=== PATIENT | female | born 1965 | race Caucasian/White ===

== ENCOUNTER 2024-02-24 09:23 | Outpatient (CLI) | payer BC, SELFPAY ==
--- NOTE | 2024-02-24 09:42 | ECG_ITS ---
Test Date: 2024-02-24 09:53:33 Measurements Intervals Datil Rate: 77 P: 57 MT: 143 QRS: 57 QRSD: 98 T: 45 QT: 373 QTc: 424 Interpretive Statements SINUS RHYTHM INCOMPLETE RIGHT BUNDLE BRANCH BLOCK [90+ ms QRS DURATION, TERMINAL R IN V1/V2, 40+ ms S IN I/aVL/V4/V5/V6] No previous ECG available for comparison Electronically Signed On 02-24-2024 15:36:30 CDT by Hector Huerta M.D.
== END 2024-02-24 09:24 | disposition home or self-care (01) ==
PROVIDERS: Visit Provider Obstetrics & Gynecology
DX: N83.209 Unspecified ovarian cyst, unspecified side (principal); I10 Essential (primary) hypertension; I45.10 Unspecified right bundle-branch block
CPT/HCPCS: 36415; 86850; 86900; 86901; 93005

== ENCOUNTER 2024-02-29 00:22 | Day surgery (SDC) | payer BC, SELFPAY ==
[2024-02-22 08:08] VITALS: BMI 24.4
--- NOTE | 2024-02-22 08:18 | PC.NURSE ---
Report to the Outpatient Waiting Room, entrance under the green pavilion located off [facility], at time _1130_ on date _[id number]_. Planned Procedure Time: _130pm_.? Time changes happen often and if your time is changed the preop area will call you the afternoon before. - You and your visitor will be asked to self-screen and do not enter if you have any COVID symptoms. Please call surgeon if you need to reschedule. - A mask is optional within the hospital at this time. Patients may have clear liquids (water, carbonated beverages, clear teas, apple juice) until 3 hours prior to surgery with a maximum of 20 ounces. - No food from midnight until time of surgery and no smoking Take only the following medications with a SIP of water on the morning of surgery: __None DO NOT STOP ANY OF YOUR OTHER PRESCRIPTION MEDICATIONS PRIOR TO SURGERY EXCEPT THE FOLLOWING Medications to discontinue per physician ___Probiotic Date to take last ecss___[phone]__ Please no make-up, nail latvian, hairspray, perfume, deodorant, or body powder the day of surgery.? No jewelry (including any body piercings) or valuables the day of surgery, leave them at home.? Please take a shower or bath the night before, or the morning of, surgery with an antibacterial soap.? Wear comfortable, loose fitting clothing.? - Jewelry must be removed prior to entering the operating room.? Rings and piercings that are not removed may be cut off. - The hospital will not accept responsibility for valuables.? - Please leave all valuables, including medications, at home the day of surgery. If you are going home after surgery, a licensed vibratory pile driver must drive you home.? - NO public transportation without another adult if you receive anesthesia. - We recommend that an adult stay with you for 24 hours following discharge. - We also recommend that you do not drive, make important decision, drink alcoholic beverages, or take any drugs that were not prescribed by your health care provider for at least 24 hours after your discharge time. Follow any additional instructions given to you from your surgeon. Telephone instructions given to __Gayatri__and asked if any additional questions and then verbalized understanding. Patient advised to call surgeon office or pre surgery nurse liaison [phone] if any additional questions.
[2024-02-29] VITALS (7 sets, daily range): BP systolic 120–147; BP diastolic 77–88; PULSE 62–85; RESP 16–23; TEMP 36.2–36.9; O2SAT 96–100
--- NOTE | 2024-02-29 11:52 | PM.IMHP ---
H&P: HPI History of Present Illness Date/Time: 02/29/24 11:52 Chief Complaint: Left adnexal cyst Narrative: 58 y/o with a left sided adnexal cyst that has persisted. Recently the cyst measured 5.1 x 3.0 x 3.6 cm, with no internal blood flow and no free fluid. The right adnexa is surgically absent. REPLACED BY [facility] Surgical History Surgical History History of endometrial ablation History of neck surgery History of right salpingo-oophorectomy Social History Social History Smoking packs per day: 1 Smoking cigarettes per day: 20.0 Years smoked: 30 Smoking pack-years: 30.00 Smoking status: Current every day smoker Tobacco type: cigarettes Alcohol intake: current Living arrangements: with family Spiritual care concerns: No Meds Home Medications and Allergies Home Medications Medication Instructions Recorded Confirmed Type L.acidophil-B.animalis, bifidum, 1 cap PO HS 02/22/24 02/22/24 History infantis, long 3 billion cell capsule amlodipine 10 mg-benazepril 20 mg 1 cap PO DAILY 02/22/24 02/22/24 History capsule esomeprazole magnesium 20 mg 20 mg PO DAILY 02/22/24 02/22/24 History capsule,delayed release (Nexium) estradiol 2 mg tablet 2 mg PO DAILY 02/22/24 02/22/24 History fexofenadine 180 mg tablet 180 mg PO DAILY 02/22/24 02/22/24 History progesterone micronized 100 mg 100 mg PO HS 02/22/24 02/22/24 History capsule psyllium husk 0.52 gram capsule 0.52 g PO HS 02/22/24 02/22/24 History (Daily Fiber) Allergies Allergy/AdvReac Type Severity Reaction Status Date / Time No Known Allergies Allergy Unverified 02/22/24 08:05 Assessment and Plan Assessment and plan (1) Left ovarian cyst: Code(s): N83.202 - Unspecified ovarian cyst, left side Status: Acute Assessment and Plan: A: Persistent left adnexal cystic mass. P: Offered continued observation vs. laparoscopic LSO. She prefers the latter. She understands risks of surgery to include risks of anesthesia, risks of pain, infection, bleeding, blood products, thromboembolic phenomena and damage to adjacent structures such as bowel, bladder, ureters, blood vessels and nerves. She understands all these risks and elects to proceed with surgery.
[2024-02-29] MEDS: LACTATED RINGERS 1,000 ML 30 ML IV CONT (12:20)
--- NOTE | 2024-02-29 12:40 | WPDHPUPDATE1 ---
History and Physical Update Update Date/Time: 02/29/24 12:40 History and Physical has been reviewed, including an updated exam of the patient. There are NO changes in the patient's condition. Risks, benefits, and alternatives have been discussed and questions answered. Patient agrees to proceed with procedure.
[2024-02-29] MEDS: ACETAMINOPHEN 500 MG TABLET 1000 MG PO (12:48)
[2024-02-29] MEDS: KETOROLAC 15 MG/ML VIAL (*BKC) IV PUSH (12:48)
--- NOTE | 2024-02-29 13:48 | P.PNAN_ITS ---
Anes - Initial Pre Proc Eval Procedure: Operation Date: 02/29/24 13:30 Proposed Procedures p Laparoscopic Left Salpingo-oophorectomy - Duran Ma MD Date/Time: 02/29/24 13:48 Surgeon: Duran Ma MD Pre Op Diagnosis: Lt Ovarian Cyst Patient Data Age: 58 Gender: F Height: 1.63 m Weight: 64.1 kg Last Vital Signs Temp 98.5 F 02/29/24 12:30 Pulse 77 02/29/24 12:30 Resp 16 02/29/24 12:30 BP 122/78 02/29/24 12:30 Pulse Ox 100 02/29/24 12:30 O2 Del Method Room Air 02/29/24 12:30 Allergies Allergy/AdvReac Type Severity Reaction Status Date / Time No Known Allergies Allergy Unverified 02/29/24 12:38 Home Medications Medication Instructions Recorded Confirmed Type L.acidophil-B.animalis, bifidum, 1 cap PO HS 02/22/24 02/29/24 History infantis, long 3 billion cell capsule amlodipine 10 mg-benazepril 20 mg 1 cap PO DAILY 02/22/24 02/29/24 History capsule esomeprazole magnesium 20 mg 20 mg PO DAILY 02/22/24 02/29/24 History capsule,delayed release (Nexium) estradiol 2 mg tablet 2 mg PO DAILY 02/22/24 02/29/24 History fexofenadine 180 mg tablet 180 mg PO DAILY 02/22/24 02/29/24 History progesterone micronized 100 mg 100 mg PO HS 02/22/24 02/29/24 History capsule psyllium husk 0.52 gram capsule 0.52 g PO HS 02/22/24 02/29/24 History (Daily Fiber) oxycodone-acetaminophen 5 mg-325 1 - 2 tablet PO Q6H PRN pain #30 02/29/24 Rx mg tablet (Percocet) tabs Patient hx anesthesia problems: none Family hx anesthesia problems: none Results Review: All pre-operative results and documents have been reviewed as part of the pre- operative evaluation. [facility] Surgical History Surgical History History of endometrial ablation History of neck surgery History of right salpingo-oophorectomy Social History Social History Smoking packs per day: 1 Smoking cigarettes per day: 20.0 Years smoked: 30 Smoking pack-years: 30.00 Smoking status: Current every day smoker Tobacco type: cigarettes Alcohol intake: current Living arrangements: with family Spiritual care concerns: No Anes - Eval Final PreProcedure Day of Procedure 02/29/24 13:48 Patient weight: normal Heart: regular rate and rhythm Lungs: clear to auscultation Airway: Mallampati scale class II Neurological: alert and oriented Last oral intake: >/= 8 hours ASA classification: II Emergent: no Anesthetic plan: proceed Anesthesia type and monitoring: general ETT and standard monitoring Results Review: All pre-operative results and documents have been reviewed as part of the pre- operative evaluation. HTN, Current smoker, approx 30 pack years, smoked at 5 am. EKG w NSR, RBBB. Informed Consent: The patient's anesthetic plan and its attendant risks and benefits were discussed with the patient/family/POA. Questions were solicited and answers provided to the satisfaction of the patient/family/POA.
--- NOTE | 2024-02-29 14:55 | W.PM.PROC2 ---
Procedure Note - Detailed Date of Procedure 02/29/24 Pre-op Diagnosis Left adnexal cystic mass Post-op Diagnosis Same Procedure Performed Laparoscopic left salpingooophorectomy Surgeon Duran Ma MD Anesthesia General Findings Normal-appearing uterus and anterior cul de sac. Right ovarian remnant seen, but right tube surgically absent. Normal-appearing bilateral round and uterosacral ligaments. A 6 x 4 x 3 cm cystic left adnexal cystic structure was adherent to the pelvic sidewall. The left ureter was visualized. Description of Procedure The patient was taken to the operating room where general endotracheal anesthesia was administered. She was prepared and draped in the usual sterile fashion in the dorsal lithotomy position. The bladder was drained with a red rubber catheter. A sterile speculum was inserted into the vagina and the anterior lip of the cervix was grasped with a single-toothed tenaculum. The acorn uterine manipulator was placed. The speculum was withdrawn. Gloves were changed and attention was turned to the abdomen. An infraumbilical skin incision was made with a scalpel. The abdomen was tented and a 5 millimeter bladeless trocar trocar was advanced under direct laparoscopic visualization. Pneumoperitoneum was administered using carbon dioxide gas. A survey of the pelvis and abdomen yielded the findings noted above. A second 5 mm port was placed under direct visualization in the RLQ, and a 10 mm port in the LLQ. The left adnexa was dissected free of filmy adhesions using gentle blunt dissection. The Ligasure device was used to ligate and transect the infundibulopelvic and uteroovarian ligaments. The specimen was placed in an endobag and passed off to be sent to pathology. Hemostasis was excellent and left ureteral vermiculation was noted. The Jeyson cone was used to pass an interrupted suture of 0-vicryl at the LLQ port site. A second interrupted suture was required to reapproximate the fascial defect. Gas was allowed to escape and the remaining ports were withdrawn. The skin incisions were reapproximated using 4-0 Vicryl in subcuticular fashion. Dermaflex was applied externally. The vaginal instrumentation was withdrawn and hemostasis was excellent here as well. Sponge, lap, needle and instrument counts were correct. The patient was awakened and taken to recovery in stable condition. I was present and scrubbed through the entire procedure. Implants None Estimated Blood Loss 5 Drains No Packing No Pathology Yes (Left tube and ovary) Complications None Condition Stable Disposition PACU
[2024-02-29] MEDS: oxyCODONE HCL (*CRX) 5 MG TAB IR PO (15:52)
== END 2024-02-29 16:32 | disposition home or self-care (01) ==
PROVIDERS: Visit Provider Obstetrics & Gynecology
PROC: (CPT 49320; principal; 2024-02-29 13:30)
DX: D27.1 Benign neoplasm of left ovary (principal); F17.210 Nicotine dependence, cigarettes, uncomplicated; G89.18 Other acute postprocedural pain; Z79.891 Long term (current) use of opiate analgesic; Z98.890 Other specified postprocedural states; Z90.721 Acquired absence of ovaries, unilateral
CPT/HCPCS: 58661; 88305; A9270; J1100; J1885; J2003; J2250; J2405; J2704; J3010; J7120